=== PATIENT | female | born 1970 | race Caucasian/White ===

== ENCOUNTER 2017-03-22 15:28 | Outpatient (CLI) | payer BC ==
[2017-03-22 16:29] LABS: #Eosinphils 0.1 thou/uL (0.0-0.7); #Lymphocytes 1.3 thou/uL (1.20-3.40); #Monocytes 0.6 thou/uL (0.11-0.59); #Neutrophils 2.8 thou/uL (1.40-6.50); %Basophils 0.9 % (0.0-1.0); %Eosinophils 1.9 % (0.0-10.0); %Lymphocytes 26.6 % (21.0-51.0); %Monocytes 12.7 % (0.0-10.0); %Neutrophils 57.9 % (42.0-75.0); Mean Corpuscular HGB CONC 32.8 g/dL (32.0-36.0); Mean Corpuscular Hemoglobin 28.7 pg (27.0-31.0); Mean Corpuscular Volume 87.5 fl (81.0-99.0); Mean Platelet Volume 8.1 fL (7.4-10.4); Platelet Count 218 thou/uL (130-400); RBC Distribution Width 10.8 % (11.5-14.5); Red Blood Cell (RBC) Count 4.51 mill/uL (4.20-5.40); White Blood Cell (WBC) Count 4.9 thou/uL (4.8-10.8)
[2017-03-22 16:47] LABS: Anion Gap 13 mmol/L (10-20); BUN (Urea Nitrogen) 9 mg/dL (7.0-18.7); Calc. Creatinine Clearance 0 mL/min (70-130); Calcium 9.6 mg/dL (7.8-10.44); Carbon Dioxide 27 mmol/L (22-29); Chloride 103 mmol/L (98-107); Estimated GFR-MDRD 70; Glucose 90 mg/dL (70-105); Potassium 3.9 mmol/L (3.5-5.1); Sodium 139 mmol/L (136-145)
== END 2017-03-22 15:29 | disposition home or self-care (01) ==
LOC: LABBT 15:28
PROVIDERS: ATTEND Orthopaedic Surgery
DX: Z01.810 Encounter for preprocedural cardiovascular examination (principal); Z01.812 Encounter for preprocedural laboratory examination; S46.211A Strain of muscle, fascia and tendon of other parts of biceps, right arm, initial encounter
CPT/HCPCS: 80048; 85025; 93005; 93010

== ENCOUNTER 2017-03-24 06:01 | Day surgery (SDC) | payer BC ==
[2017-03-22 15:34] VITALS: BMI 23.7
[2017-03-24] MEDS ORDERED: Dexamethasone 4 mg/ml Vial ONE (06:17)
[2017-03-24] MEDS ORDERED: Fentanyl 100 MCG/2 ML VIAL ONE ×2 (06:17→06:36)
[2017-03-24] MEDS ORDERED: Midazolam HCl 2 mg/2 ml Vial ONE ×2 (06:17→06:36)
[2017-03-24] MEDS ORDERED: CEFAZOLIN/Water 2 GM/20 ML SYRINGE ONE (06:22)
[2017-03-24] MEDS ORDERED: Scopolamine 1.5 mg/72 hour Patch ONE (06:35)
[2017-03-24] MEDS ORDERED: Ondansetron HCl/PF 4 MG/2 ML Vial ONE ×2 (06:36→14:35)
[2017-03-24] MEDS ORDERED: Bupivacaine 0.25% HCL 30 ML VIAL ONE (06:45)
[2017-03-24] MEDS ORDERED: Bupivacaine PF 0.5% 30 ML VIAL ONE (06:45)
[2017-03-24] MEDS ORDERED: Lidocaine 1% w/Epinephrine 1:200K 30 ML VIAL ONE (06:45)
[2017-03-24] MEDS ORDERED: Ondansetron HCl/PF 4 MG/2 ML Vial IVP PRN (07:15)
[2017-03-24] MEDS ORDERED: Zolpidem Tartrate 5 MG TAB PO PRN (07:15)
[2017-03-24] MEDS ORDERED: Promethazine HCl 25 MG/ML VIAL IM PRN (07:15)
[2017-03-24] MEDS ORDERED: Ketorolac Tromethamine 30 MG/ML VIAL IVP PRN (07:15)
[2017-03-24] MEDS ORDERED: HYDROcodone/Acetaminophen 5/325 mg Tablet PO PRN ×2 (07:15)
[2017-03-24] MEDS ORDERED: Ropivacaine 0.2% 550 ML 550 ML NERVE BLCK SCH (07:15)
[2017-03-24] MEDS ORDERED: traMADol HCl 50 MG TAB PO PRN ×2 (07:15)
[2017-03-24] MEDS ORDERED: Fentanyl 100 MCG/2 ML VIAL IV PRN (07:16)
--- NOTE | 2017-03-24 11:11 | OP ---
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 PROCEDURES PERFORMED: 1. Right shoulder arthroscopy with debridement and shaving including subacromial bursectomy. 2. Open biceps tenodesis. SURGEON: Martinez Samuel M.D. CAMP COOK: Rg Dee PA-C BLOOD LOSS: Minimal. COMPLICATIONS: None. ANESTHESIA: She had a general anesthetic as well as a block. DISPOSITION: She went to the recovery room in stable condition. IMPLANTS: Arthrex 7 x 23 BioComposite Bio-Tenodesis screw. CONDITION: She went to the recovery room in stable condition. INDICATIONS: Laura is a very active 46-year-old female who has had years of pain and gotten to the point where she cannot sleep at night and was failed to be able to get rid of the discomfort nonoper atively. PROCEDURE IN DETAIL: After all appropriate consent forms were explained and signed, she was taken to the operating room and at this time was given general anesthetic. Once the level of anesthesia was appropriate, she was rolled into the left lateral decubitus position with all bony prominences well-p added. Newman bag was inflated to hold her in this position. Axillary roll was placed underneath the left axilla. The arm was then taken through full range of motion and found to lack no motion. The a rm was then suspended with 8 pounds of traction in standard arthroscopic fashion. We then prepped an d draped the right shoulder and upper extremity in standard surgical fashion. The bony anatomic land shirley were drawn out and subacromial space was infiltrated with 1% lidocaine with epinephrine. Poste rior portal was established and the scope was placed into the shoulder joint. Anterior working zenon l was made using a needle localization technique. Diagnostic arthroscopy commenced in the glenohumer al joint. The articular surfaces were pristine. The posterior, inferior and anterior labrum was int act. The subscapularis itself was intact, but did appear to have a tear of the superior most portion of this/the inferior portion of the bicipital sling and the superior labrum had degenerative SLAP te ar. Taken to probe, I was able to pull the biceps tendon anteriorly out of the groove. At this time , we also evaluated the rotator cuff insertion from supraspinatus posteriorly and this was found to b e pristine. At this time, a needle was placed through the biceps and the suture was placed through t he biceps tendon. Arthroscopic scissors were used to cut the biceps off the superior labrum and this area was debrided. We then removed the scope and replaced in the subacromial space. Lateral workin g portal was then made. Subacromial bursectomy was performed. No bony decompression was needed or p erformed. Rotator cuff was intact. At this time, scope was removed, shoulder was drained. A 15 bassam de was used to make an incision down through skin and the Bovie was then used to coagulate any brisk venous bleeding. We then opened our deltoid fascia sharply and used finger dissection to split the d eltoid fibers in line to get down to the underlying transverse humeral ligament. This was opened up, a significant amount of synovitic tissue was noted and this entire groove was opened up and coagulat ed. We then sewed our biceps tendon and cut off the intra-articular portion of this. We then placed our pin, drilled with a 7 mm reamer to a depth of 25 and placed a 7 x 23 Arthrex BioComposite Bio-Te nodesis screw in standard fashion. Stitches were tied over the top of this. This was then cut and t he arm was taken through full range of motion, the deltoid freely went over top of our operated area. We then thoroughly irrigated and dried. We ran a Vicryl to close our deltoid fascia followed by 2- 0 Vicryl and nylon sutures to close skin. Bulky sterile dressing was applied. The patient was awake krishna and taken to recovery in stable condition. All counts were correct at the end of the case. She received preoperative IV antibiotics.
[2017-03-24] MEDS ORDERED: Bupivacaine HCl 0.5%/Epinephrine 1:200,000/PF 30 ml Vial ONE (13:50)
[2017-03-24] MEDS ORDERED: Dexamethasone 20 MG/5 ML VIAL ONE (14:35)
[2017-03-24] MEDS ORDERED: Lidocaine 1% PF 5 ML VIAL ONE (14:35)
[2017-03-24] MEDS ORDERED: Propofol 200 MG/20 ML VIAL ONE (14:35)
[2017-03-24] MEDS ORDERED: Ketorolac Tromethamine 30 MG/ML VIAL ONE (14:35)
== END 2017-03-24 11:25 | disposition home or self-care (01) ==
LOC: SDC 06:01
PROVIDERS: ATTEND Orthopaedic Surgery
PROC: 0RNJ4ZZ Release Right Shoulder Joint, Percutaneous Endoscopic Approach (ICD-10-PCS; principal; 2017-03-24)
PROC: 0LS30ZZ Reposition Right Upper Arm Tendon, Open Approach (ICD-10-PCS; principal; 2017-03-24)
PROC: 0MM14ZZ Reattachment of Right Shoulder Bursa and Ligament, Percutaneous Endoscopic Approach (ICD-10-PCS; principal; 2017-03-24)
DX: S43.431A Superior glenoid labrum lesion of right shoulder, initial encounter (principal); S46.111A Strain of muscle, fascia and tendon of long head of biceps, right arm, initial encounter; Z98.890 Other specified postprocedural states
CPT/HCPCS: A4306; C1713; J0670; J1100; J1885; J2001; J2250; J2405; J2704; J2795; J3010; S0020

== ENCOUNTER 2017-09-21 09:48 | Outpatient (CLI) | payer BC | END 2017-09-21 09:49 | disposition home or self-care (01) | LOC: BICMAMMO 09:48 | PROVIDERS: ATTEND Obstetrics & Gynecology | DX: Z12.31 Encounter for screening mammogram for malignant neoplasm of breast (principal); Z80.3 Family history of malignant neoplasm of breast | CPT/HCPCS: 77063; 77067 ==

== ENCOUNTER 2021-01-26 08:14 | Outpatient (CLI) | payer OTHER | END 2021-01-26 08:15 | disposition home or self-care (01) | LOC: TBSIIMAG 08:14 | PROVIDERS: ATTEND Orthopaedic Surgery | DX: M25.532 Pain in left wrist (principal); M18.12 Unilateral primary osteoarthritis of first carpometacarpal joint, left hand; S63.042A Subluxation of carpometacarpal joint of left thumb, initial encounter; M25.442 Effusion, left hand; M65.842 Other synovitis and tenosynovitis, left hand ==

== ENCOUNTER 2024-09-24 23:10 | Observation (INO) | payer BC ==
[2024-09-24 23:44] LABS: #Basophils 0.03 10x3/uL (0.0-0.2); #Eosinophils Less than 0.03 10x3/uL (0.0-0.7); #Monocytes 0.60 10x3/uL (0.11-0.59); #Neutrophils 14.48 10x3/uL (1.40-6.50); %Basophils 0.2 % (0.0-1.0); %Eosinophils 0.0 % (0.0-10.0); %Lymphocytes 4.2 % (21.0-51.0); %Monocytes 3.8 % (0.0-10.0); %Neutrophils 91.5 % (42.0-75.0); Hematocrit 36.8 % (36.0-47.0); Hemoglobin 12.5 g/dL (12.0-16.0); Mean Corpuscular Hemoglobin 28.2 pg (27.0-31.0); Mean Corpuscular Volume 83.1 fL (78.0-98.0); Platelet Count 257 10x3/uL (130-400); Red Blood Cell (RBC) Count 4.43 mill/uL (4.20-5.40); White Blood Cell (WBC) Count 15.83 10x3/uL (4.8-10.8)
[2024-09-24] MEDS ORDERED: diphenhydrAMINE 50 MG/ML VIAL ONE (23:45)
[2024-09-24] MEDS ORDERED: Droperidol 5 MG/2 ML VIAL ONE (23:45)
[2024-09-24 23:59] LABS: ALT (SGPT) 30 U/L (Less than 34); AST (SGOT) 48 U/L (11-34); Albumin 4.1 g/dL (3.1-4.5); Alkaline Phosphatase 68 U/L (40-110); Anion Gap 17 mmol/L (10-20); BUN (Urea Nitrogen) 9 mg/dL (9.8-20.1); Bilirubin, Total 0.8 mg/dL (0.3-1.2); Calc. Creatinine Clearance 0 mL/min (70-130); Calcium 8.6 mg/dL (7.8-10.44); Carbon Dioxide 19 mmol/L (22-29); Chloride 102 mmol/L (98-107); Globulin 3.2 g/dL (2.4-3.5); Glucose 138 mg/dL (70-105); Lipase 25 U/L (8-78); Potassium 3.7 mmol/L (3.5-5.1); Sodium 134 mmol/L (136-145)
[2024-09-25] MEDS ORDERED: Prochlorperazine 10 MG/2 ML VIAL ONE (00:15)
[2024-09-25] MEDS ORDERED: Prochlorperazine 10 MG/2 ML VIAL SLOW IVP PRN (00:50)
[2024-09-25] MEDS ORDERED: Acetaminophen 325 MG TAB PO PRN (01:33)
[2024-09-25] MEDS ORDERED: Senokot S 8.6-50 MG TAB PO PRN (01:33)
[2024-09-25] MEDS ORDERED: Naproxen 500 MG TAB PO PRN (01:33)
[2024-09-25] MEDS ORDERED: Electrolyte Replacement Protocol 1 EACH FS SCH (01:45)
[2024-09-25] MEDS ORDERED: Prochlorperazine 10 MG/2 ML VIAL IVPB PRN (01:55)
[2024-09-25] MEDS: diphenhydrAMINE 50 MG/ML VIAL IVP SCH ×2 (02:10→14:07)
[2024-09-25] MEDS: Metoclopramide HCl 10 MG (2 mL) VIAL IVP SCH (02:10)
[2024-09-25] MEDS: Ondansetron PF 4 MG/2 ML Vial IVP PRN ×2 (05:56→10:57)
[2024-09-25 06:43] VITALS: BMI 24.7
[2024-09-25] MEDS: Famotidine/PF 20 mg/2ml Vial SLOW IVP SCH (08:47)
[2024-09-25] MEDS: Ketorolac Tromethamine 30 MG (1 mL) VIAL IVP PRN (08:47)
[2024-09-25] MEDS: Prochlorperazine 10 MG/2 ML VIAL SLOW IVP PRN (10:56)
[2024-09-25] MEDS: Metoclopramide HCl 10 MG (2 mL) VIAL IVP PRN (12:53)
[2024-09-25] MEDS: Pantoprazole 40 MG VIAL IVP SCH (14:07)
[2024-09-26] MEDS: diphenhydrAMINE 50 MG/ML VIAL IVP SCH (00:45)
[2024-09-26] MEDS: diphenhydrAMINE 50 MG/ML VIAL ONE (00:45)
[2024-09-26 07:14] VITALS: TEMP 98.2
== END 2024-09-26 07:45 | disposition home or self-care (01) ==
LOC: EEVIPCON 23:10 → ERS 23:10 → CCU 09-25 00:37 → INTOOBSV 09-25 00:37
PROVIDERS: ADMIT Surgery; ATTEND Surgery
DX: R11.2 Nausea with vomiting, unspecified (principal); E87.1 Hypo-osmolality and hyponatremia; Z79.899 Other long term (current) drug therapy
CPT/HCPCS: 80053; 83690; 85025; 93005; 94760; J0780; J1100; J1200; J1308; J1630; J1790; J1885; J2270; J2405; J2470; J2765; J7030; J7120; Q0167